=== PATIENT | female | born 1955 | race Caucasian/White ===

== ENCOUNTER → 2016-10-28 | Outpatient (CLI) | payer MEDICARE, MEDICAID | LOC: LAB 09:52 | PROVIDERS: ATTEND Family Medicine | DX: J06.9 Acute upper respiratory infection, unspecified (principal) | CPT/HCPCS: 87486; 87581; 87633; 87798 ==

== ENCOUNTER 2016-11-07 17:13 | Emergency (ER) | payer MEDICARE, MEDICAID ==
[~2016-11-07] VITALS: Ht 162.6 cm; Wt 58.5 kg
[2016-11-07 18:05] LABS: BILIRUBIN,URINE Negative (Negative); COLOR,URINE Yellow; GLUCOSE, URINE (UA) 2+ (Negative); LEUKOCYTE ESTERASE ,URINE Negative (Negative)
[2016-11-07 18:06] LABS: CLARITY,URINE Slightly Cloudy
[2016-11-07 18:27] LABS: MEAN CORPUSCULAR HGB CONC 34.3 g/dL (31.0-37.0); MEAN CORPUSCULAR VOLUME 87 FL (80-100); MEAN PLATELET VOLUME 9.4 FL (6.0-9.5); PLATELET COUNT 571 10^3uL (150-450); WHITE BLOOD COUNT 7.57 10^3uL (4.0-11.0)
[2016-11-07 18:40] LABS: ALBUMIN 3.8 g/dL (3.4-5.0); ANION GAP 11.6 MEQ/L (3-15); CALCULATED IONIZED CALCIUM 4.1 mg/dL (3.8-4.6); TOTAL PROTEIN 6.9 g/dL (6.4-8.5)
[2016-11-07 19:08] LABS: BAND NEUTROPHILS % 3 % (0-6); EOSINOPHILS % 1 % (0-4); LYMPHOCYTES # 1.8 #; MONOCYTES # 1.2 #; MONOCYTES % 17 % (3-11); RBC MORPH NORMAL (NORMAL); SEGMENTED NEUTROPHILS % 55 % (51-67); TOTAL CELLS COUNTED 100
[2016-11-07 19:17] VITALS: BP 138/71
== END 2016-11-07 19:18 | disposition home or self-care (01) ==
LOC: ED 17:17
DX: S02.2XXA Fracture of nasal bones, initial encounter for closed fracture (principal); W19.XXXA Unspecified fall, initial encounter; Y93.01 Activity, walking, marching and hiking; F79 Unspecified intellectual disabilities
CPT/HCPCS: 36415; 70450; 70486; 72125; 73562; 80053; 81003; 84484; 85025; 86140; 93005; 99283